=== PATIENT | female | born 1985 | race Caucasian/White ===

== ENCOUNTER 2016-05-20 05:21 | Inpatient (IN) | payer OTHER ==
[~2016-05-20] VITALS: Ht 170.2 cm; Wt 89.8 kg
[~2016-05-20 05:21] MED LIST: 0.9% SODIUM CHLORIDE 10 ML VIAL IVP ONE; FOLI400 PO; IBUP-1547 PO; KETOROLAC TROMETHAMINE 60 MG/2 ML VIAL IM ONE; ONDANSETRON HCL 4 MG/2 ML VIAL IVP ONE; OXYTOCIN 10 UNITS/ML VIAL IM ONE; PREN-61 PO
[2016-05-20] MEDS ORDERED: RINGERS SOLUTION,LACTATED 1,000 ML IV ONE (05:28)
[2016-05-20] MEDS ORDERED: METOCLOPRAMIDE HCL 5 MG/ML 2 ML VIAL IVP ONE (05:30)
[2016-05-20] MEDS ORDERED: CITRIC ACID/SODIUM CITRATE 30 ML SOLUTION UDCUP PO ONE (05:30)
[2016-05-20 06:03] VITALS: BP 101/63
[2016-05-20 06:11] LABS: BASOPHILS % (AUTO) 0.1 % (0.0-2.0); EOSINOPHILS % (AUTO) 1.7 % (1.0-6.0); HEMATOCRIT 33.7 % (36-46); HEMOGLOBIN 11.1 g/dL (12.0-16.0); LYMPHOCYTES # (AUTO) 3.3 K/uL (1.0-4.8); MEAN CORPUSCULAR HEMOGLOBIN 29.9 pg (26.0-34.0); MEAN CORPUSCULAR HGB CONC 32.8 G/dL (31.0-37.0); MEAN CORPUSCULAR VOLUME 91 fL (80-100); MONOCYTES # (AUTO) 0.8 K/uL (0.1-1.0); MONOCYTES % (AUTO) 6.6 % (2.0-9.0); NEUTROPHILS # (AUTO) 7.9 K/uL (1.8-7.7); NEUTROPHILS % (AUTO) 64.6 % (40.0-70.0); RED BLOOD CELL COUNT(AUTO) 3.71 MIL/uL (4.00-5.20); RED CELL DISTRIBUTION WIDTH 13.8 % (11.5-14.5); WHITE BLOOD COUNT (AUTO) 12.3 K/uL (4.5-11.0)
[2016-05-20] MEDS ORDERED: MORPHINE SULFATE/PF 0.5 MG/ML 10 ML AMP ONE (06:39)
[2016-05-20] MEDS ORDERED: CeFAZolin 2 GM/DEXTROSE 50 ML IV ONE (06:39)
[2016-05-20] MEDS ORDERED: FentaNYL CITRATE-PF 100 MCG/2 ML VIAL ONE ×2 (06:39→09:03)
[2016-05-20] MEDS ORDERED: MEPERIDINE-PF 25 MG/ML SYRINGE IVP PRN (07:00)
[2016-05-20] MEDS ORDERED: FentaNYL CITRATE-PF 100 MCG/2 ML VIAL IVP PRN ×3 (07:00)
[2016-05-20] MEDS ORDERED: PROMETHAZINE HCL 12.5 MG in SODIUM CHLORIDE 0.9% 50 ML IV PRN (07:00)
[2016-05-20] MEDS ORDERED: NALBUPHINE HCL 10 MG/ML VIAL IVP PRN ×3 (07:00)
[2016-05-20] MEDS ORDERED: NALOXONE HCL 0.4 MG/ML VIAL IVP PRN (07:00)
[2016-05-20] MEDS ORDERED: DEXAMETHASONE SOD PHOS 4 MG/ML VIAL IVP PRN (07:00)
[2016-05-20] MEDS ORDERED: ONDANSETRON HCL 4 MG/2 ML VIAL IVP PRN ×2 (07:00)
[2016-05-20] MEDS ORDERED: DiphenhydrAMINE HCL 50 MG/ML VIAL IVP PRN ×2 (07:00)
[2016-05-20] MEDS ORDERED: OXYGEN THERAPY IH SCH ×3 (08:00)
[2016-05-20] MEDS ORDERED: TRIAMCINOLONE ACETONIDE 40 MG/ML VIAL IM ONE (08:00)
[2016-05-20] MEDS: MAGNESIUM HYDROXIDE SUSPENSION 30 ML UDCUP PO SCH (09:00)
[2016-05-20] MEDS ORDERED: LANOLIN 7 GM OINTMENT TP PRN (09:00)
[2016-05-20] MEDS ORDERED: DEXTROSE 5%-0.45% SODIUM CHL 1,000 ML IV ONE (09:42)
[2016-05-20] MEDS: DEXTROSE 5%-0.45% SODIUM CHL 1,000 ML IV SCH ×4 (09:44→21:39)
[2016-05-20] MEDS: NALBUPHINE HCL 10 MG/ML VIAL IVP PRN ×2 (11:29→16:04)
[2016-05-20] MEDS: FentaNYL CITRATE-PF 100 MCG/2 ML VIAL IVP PRN (21:05)
[2016-05-21] MEDS: IBUPROFEN 800 MG TABLET PO SCH ×4 (02:11→20:33)
[2016-05-21] MEDS: FentaNYL CITRATE-PF 100 MCG/2 ML VIAL IVP PRN (06:31)
[2016-05-21] MEDS: ACETAMINOPHEN/CODEINE 300-30 MG TABLET PO PRN ×4 (13:22→23:30)
[2016-05-21] MEDS: MAGNESIUM HYDROXIDE SUSPENSION 30 ML UDCUP PO SCH (20:33)
[2016-05-22] MEDS: IBUPROFEN 800 MG TABLET PO SCH ×4 (01:54→20:09)
[2016-05-22 08:33] LABS: BASOPHILS % (AUTO) 0.3 % (0.0-2.0); EOSINOPHILS % (AUTO) 3.1 % (1.0-6.0); HEMATOCRIT 36.8 % (36-46); LYMPHOCYTES # (AUTO) 3.2 K/uL (1.0-4.8); LYMPHOCYTES % (AUTO) 28.8 % (22.0-44.0); MEAN CORPUSCULAR HEMOGLOBIN 29.8 pg (26.0-34.0); MEAN CORPUSCULAR HGB CONC 32.7 G/dL (31.0-37.0); MEAN CORPUSCULAR VOLUME 91 fL (80-100); MONOCYTES # (AUTO) 0.6 K/uL (0.1-1.0); MONOCYTES % (AUTO) 5.7 % (2.0-9.0); NEUTROPHILS # (AUTO) 6.9 K/uL (1.8-7.7); NEUTROPHILS % (AUTO) 62.1 % (40.0-70.0); RED BLOOD CELL COUNT(AUTO) 4.03 MIL/uL (4.00-5.20); RED CELL DISTRIBUTION WIDTH 13.9 % (11.5-14.5); WHITE BLOOD COUNT (AUTO) 11.2 K/uL (4.5-11.0)
[2016-05-22] MEDS: MAGNESIUM HYDROXIDE SUSPENSION 30 ML UDCUP PO SCH ×2 (09:04→20:59)
[2016-05-22] MEDS: ACETAMINOPHEN/CODEINE 300-30 MG TABLET PO PRN (14:14)
[2016-05-23] MEDS: IBUPROFEN 800 MG TABLET PO SCH ×2 (02:33→08:33)
[2016-05-23] MEDS: ACETAMINOPHEN/CODEINE 300-30 MG TABLET PO PRN (08:33)
[2016-05-23] MEDS: MAGNESIUM HYDROXIDE SUSPENSION 30 ML UDCUP PO SCH (09:00)
[2016-05-23] MEDS ORDERED: ACET1TAB12 PO (09:13)
[2016-05-23] MEDS ORDERED: IBUP-1547 PO (09:15)
[2016-05-23] MEDS ORDERED: DSS100 PO (09:17)
== END 2016-05-23 10:50 | disposition home or self-care (01) | DRG 766 ==
LOC: OBSVTOIN 05:21 → 4S 05:21
PROVIDERS: ADMIT Obstetrics & Gynecology; ATTEND Obstetrics & Gynecology
PROC: 10D00Z1 Extraction of Products of Conception, Low, Open Approach (ICD-10-PCS; principal; 2016-05-20)
DX: O34.211 Maternal care for low transverse scar from previous cesarean delivery (principal); Z3A.39 39 weeks gestation of pregnancy; Z37.0 Single live birth
CPT/HCPCS: 86850; 86900; 86901; 86920; 87081; J0690; J1885; J2274; J2300; J2405; J2590; J2765; J3010; J3301; J7120

== ENCOUNTER 2019-03-18 05:45 | Inpatient (IN) | payer OTHER ==
[~2019-03-18] VITALS: Ht 175.3 cm; Wt 89.8 kg
[~2019-03-18 05:45] MED LIST changes: -0.9% SODIUM CHLORIDE 10 ML VIAL IVP ONE; +ACET1TAB12 PO; +DSS100 PO; -FOLI400 PO; -IBUP-1547 PO; +IBUP-2071 PO; -KETOROLAC TROMETHAMINE 60 MG/2 ML VIAL IM ONE; -ONDANSETRON HCL 4 MG/2 ML VIAL IVP ONE; -OXYTOCIN 10 UNITS/ML VIAL IM ONE
[2019-03-18] MEDS ORDERED: RINGERS SOLUTION,LACTATED 1,000 ML IV ONE (06:16)
[2019-03-18] MEDS ORDERED: CITRIC ACID/SODIUM CITRATE 30 ML SOLUTION UDCUP PO ONE (06:30)
[2019-03-18] MEDS ORDERED: METOCLOPRAMIDE HCL 5 MG/ML 2 ML VIAL IVP ONE (06:30)
[2019-03-18 06:56] VITALS: BP 107/61
[2019-03-18] MEDS ORDERED: BUPIVACAINE HCL/DEX-WATER/PF 0.75% 2 ML AMP ONE (07:01)
[2019-03-18] MEDS ORDERED: MORPHINE SULFATE/PF 1 MG/ML 10 ML AMP ONE (07:01)
[2019-03-18] MEDS ORDERED: FentaNYL CITRATE-PF 100 MCG/2 ML VIAL ONE (07:01)
[2019-03-18] MEDS ORDERED: ACETAMINOPHEN 1000 MG/ISO-OSM 100 ML IV ONE (07:02)
[2019-03-18 07:07] LABS: BASOPHILS % (AUTO) 0.3 % (0.0-2.0); EOSINOPHILS % (AUTO) 2.2 % (1.0-6.0); HEMATOCRIT 32.1 % (36-46); HEMOGLOBIN 11.2 g/dL (12.0-16.0); LYMPHOCYTES # (AUTO) 2.9 K/uL (1.0-4.8); LYMPHOCYTES % (AUTO) 27.3 % (22.0-44.0); MEAN CORPUSCULAR HGB CONC 34.7 G/dL (31.0-37.0); MEAN CORPUSCULAR VOLUME 89 fL (80-100); MONOCYTES # (AUTO) 0.7 K/uL (0.1-1.0); NEUTROPHILS # (AUTO) 6.7 K/uL (1.8-7.7); NEUTROPHILS % (AUTO) 63.2 % (40.0-70.0); PLATELET COUNT (AUTO)-OB 202 K/uL (150-450); RED CELL DISTRIBUTION WIDTH 13.8 % (11.5-14.5)
[2019-03-18] MEDS ORDERED: ONDANSETRON HCL 4 MG/2 ML VIAL IVP PRN ×2 (07:30)
[2019-03-18] MEDS ORDERED: MORPHINE SULFATE 10 MG/ML SYRINGE IVP PRN (07:30)
[2019-03-18] MEDS ORDERED: NALOXONE HCL 0.4 MG/ML VIAL IVP PRN (07:30)
[2019-03-18] MEDS ORDERED: DiphenhydrAMINE HCL 50 MG/ML VIAL IVP PRN (07:30)
[2019-03-18] MEDS ORDERED: FentaNYL CITRATE-PF 100 MCG/2 ML VIAL IVP PRN ×2 (07:30)
[2019-03-18] MEDS ORDERED: NALBUPHINE HCL 10 MG/ML VIAL IVP PRN ×2 (07:30)
[2019-03-18] MEDS ORDERED: OXYGEN THERAPY IH SCH ×2 (08:00)
[2019-03-18] MEDS ORDERED: LANOLIN 7 GM OINTMENT TP PRN (09:15)
[2019-03-18] MEDS ORDERED: ACETAMINOPHEN/CODEINE 300-30 MG TABLET PO PRN ×2 (09:15)
[2019-03-18] MEDS ORDERED: DEXTROSE 5%-0.45% SODIUM CHL 1,000 ML IV ONE (11:01)
[2019-03-18] MEDS: DEXTROSE 5%-0.45% SODIUM CHL 1,000 ML IV SCH ×3 (11:03→20:15)
[2019-03-18] MEDS: ACETAMINOPHEN 1000 MG/ISO-OSM 100 ML IV SCH ×2 (13:31→20:14)
[2019-03-18] MEDS: MAGNESIUM HYDROXIDE SUSPENSION 30 ML UDCUP PO SCH (21:00)
[2019-03-19] MEDS: DEXTROSE 5%-0.45% SODIUM CHL 1,000 ML IV SCH (00:30)
[2019-03-19] MEDS: IBUPROFEN 800 MG TABLET PO SCH ×4 (02:32→19:24)
[2019-03-19] MEDS ORDERED: 0.9% SODIUM CHLORIDE 10 ML VIAL IVP ONE (05:40)
[2019-03-19] MEDS ORDERED: OXYTOCIN 10 UNITS/ML VIAL IM ONE (05:40)
[2019-03-19] MEDS ORDERED: DEXAMETHASONE SOD PHOS 4 MG/ML VIAL IVP ONE (05:40)
[2019-03-19] MEDS ORDERED: ONDANSETRON HCL 4 MG/2 ML VIAL IVP ONE (05:40)
[2019-03-19] MEDS ORDERED: EPHEDrine SULFATE 50 MG/ML VIAL IM ONE (05:40)
[2019-03-19] MEDS: MAGNESIUM HYDROXIDE SUSPENSION 30 ML UDCUP PO SCH ×2 (08:24→22:24)
[2019-03-19] MEDS ORDERED: ACETAMINOPHEN/CODEINE 300-30 MG TABLET PO PRN (09:15)
[2019-03-20] MEDS: ACETAMINOPHEN/CODEINE 300-30 MG TABLET PO PRN ×2 (00:32→15:09)
[2019-03-20] MEDS: IBUPROFEN 800 MG TABLET PO SCH ×4 (04:42→23:53)
[2019-03-20] MEDS: MAGNESIUM HYDROXIDE SUSPENSION 30 ML UDCUP PO SCH ×2 (07:43→21:04)
[2019-03-21] MEDS: IBUPROFEN 800 MG TABLET PO SCH (05:59)
== END 2019-03-21 11:20 | disposition home or self-care (01) | DRG 785 ==
LOC: 4S 05:45 → PREOBSVTOIN 04-06 06:08
PROVIDERS: ADMIT Obstetrics & Gynecology; ATTEND Obstetrics & Gynecology
PROC: 10D00Z1 Extraction of Products of Conception, Low, Open Approach (ICD-10-PCS; principal; 2019-03-18)
PROC: 0UB70ZZ Excision of Bilateral Fallopian Tubes, Open Approach (ICD-10-PCS; 2019-03-18)
DX: O34.211 Maternal care for low transverse scar from previous cesarean delivery (principal); Z3A.39 39 weeks gestation of pregnancy; Z37.0 Single live birth; Z30.2 Encounter for sterilization
CPT/HCPCS: 86850; 86900; 86901; 88302; J0131; J1100; J2405; J2590; J2765; J3010; J3490; J7120